=== PATIENT | female | born 1995 | race Caucasian/White ===

== ENCOUNTER 2018-01-18 22:16 | Emergency (ER) | payer OTHER ==
[~2018-01-18 22:16] MED LIST: BACTRIM DS TAB1 EACH PO; KEFLEX500 M1 PO; PREDNISONE10 MG PO
--- NOTE | 2018-01-19 00:20 | ED ANIMAL BITE/WOUND CHECK ---
History of Present Illness General Chief Complaint: Skin Rash/ Abcess Stated Complaint: ABSCESS FOLLOW-UP Source: patient Exam Limitations: no limitations Vital Signs & Intake/Output Vital Signs & Intake/Output Vital Signs Date Time Temp Pulse Resp B/P B/P Pulse O2 O2 Flow FiO2 Mean Ox Delivery Rate 01/19 0029 98.2 98 18 112/68 100 Room Air 01/19 0028 100 Room Air 01/18 2238 114/69 01/18 2237 98.5 101 16 97 Room Air ED Intake and Output 01/19 0000 01/18 1200 Intake Total Output Total Balance Patient 130 lb Weight Weight Reported by Patient Measurement Method Allergies Coded Allergies: amoxicillin (Intermediate, HIVES 10/13/15) soy (Mild, HIVES 10/13/15) Reconcile Medications Cephalexin (Keflex) 500 MG CAPSULE 1 CAP PO TID abscess Prednisone 10 MG TAB 0 TAB PO DAILY CONTACT DERMATITIS TAKE 4 PILLS A DAY FOR 3 DAYS AND TAKE 3 PILLS A DAY FOR 3 DAYS AND TAKE 2 PILLS A DAY FOR 3 DAYS AND TAKE ONE PILL A DAY FOR 3 DAYS Sulfamethoxazole/Trimethoprim (Bactrim Ds Tablet) 800 MG-160 MG TABLET 1 TAB PO BID abscess/cellulitis Triage Note: PT TO ED FOR I&D OF ABSCESS TO GROIN AREA. SEEN FOR SAME ON WEDNESDAY AND STARTED ON PO ABTS. HAS BEEN DOING WARM SOAKS. STATES WAS TOLD TO RETURN TODAY FOR RECHECK AND DRAINAGE. Triage Nurses Notes Reviewed? yes Onset: Abrupt Duration: day(s): (5), better Timing: single episode today Injury Environment: home Is Injury an Animal Bite? No : No Patient currently breastfeeds: No HPI: 22-year-old female no medical history presents for abscess recheck. Patient was seen here several days ago for an abscess/cellulitis. She was given antibiotics still do warm soaks. The abscess was not drained at that time. Patient states she's been taking her antibiotics as directed and applying warm soaks. She states that yesterday a large amount of drainage came out at the abscess area. She states that it is gotten much better but is still swollen. There is no redness no fever. (Feed Ron) Past History Travel History Traveled to [place] past 21 day No Medical History Any Pertinent Medical History? see below for history Neurological: NONE EENT: NONE Cardiovascular: NONE Respiratory: NONE Gastrointestinal: NONE Hepatic: NONE Renal: NONE Musculoskeletal: NONE Psychiatric: NONE Endocrine: NONE Surgical History Surgical History: non-contributory Psychosocial History What is your primary language Latvian Tobacco Use: Never used Family History Hx Contributory? No (Fede Ron) Review of Systems Review of Systems Constitutional: Reports: no symptoms. EENTM: Reports: no symptoms. Respiratory: Reports: no symptoms. Cardiovascular: Reports: no symptoms. GI: Reports: no symptoms. Genitourinary: Reports: no symptoms. Musculoskeletal: Reports: no symptoms. Skin: Reports: see HPI (abscess). Neurological/Psychological: Reports: no symptoms. Hematologic/Endocrine: Reports: no symptoms. Immunologic/Allergic: Reports: no symptoms. All Other Systems: Reviewed and Negative (Fede Ron) Physical Exam Physical Exam General Appearance: well developed/nourished, no apparent distress, alert, awake Head: atraumatic, normal appearance Eyes: Bilateral: normal appearance, EOMI. Ears, Nose, Throat: hearing grossly normal Neck: normal inspection, supple, full range of motion Respiratory: no respiratory distress Back: normal inspection, normal range of motion Extremities: left suprapubic area there is a 1.5 cm diameter area of induration without erythema or discharge no focal fluctuant areas. There is left inguinal lymphadenopathy. There is tenderness to palpation. No erythema no discharge Neurologic/Psych: no motor/sensory deficits, awake, alert, oriented x 3, normal gait Skin: intact, normal color, warm/dry Lymphatic: inguinal node tender (L) (Fede Ron) Progress Differential Diagnosis: abscess, cellulitis, joint infection Plan of Care: Patient is here for an abscess recheck. The area is still very indurated. She reported that a large amount of discharge came out yesterday. No signs of overlying cellulitis. She feels it is getting better. Advised to continue antibiotics with full course continue warm compresses follow-up in another 2 or 3 days. Discussed return precautions patient agrees the plan (Fede Ron) Departure Departure Disposition: HOME OR SELF CARE Condition: Stable Clinical Impression Primary Impression: Abscess re-check Referrals: Patient Has No Primary Care Dr (PCP/Family) Additional Instructions: Continue antibiotics as directed for the full course. Apply warm compresses for 15-20 minutes every few hours. Monitor the area closely if you notice spreading redness worsening swelling worsening pain fever or any other concerns return immediately. you should otherwise have a wound check in another 2 or 3 days. Departure Forms: Customer Survey General Discharge Information (Fede Ron) PA/HOG COOLER Co-Sign Statement Statement: ED Attending supervision documentation- [] I saw and evaluated the patient. I have also reviewed all the pertinent lab results and diagnostic results. I agree with the findings and the plan of care as documented in the PA's/HOG COOLER's documentation. [x] I have reviewed the ED Record and agree with the PA's/HOG COOLER's documentation. [] Additions or exceptions (if any) to the PAs/HOG COOLER's note and plan are summarized below: [] (Barrett MULTANI,Cesar Carlos) ED Attending Observation Initial Observation Note: I have seen and personally examined JOANIE HOLLINS on 01/19/18 at 0928. I agree with the current emergency department documentation. The disposition (admission or discharge) is uncertain at this time, she needs a period of observation for the following reason(s): The ED Nurse caring for this patient has been personally informed as to what the patient is being observed for. (Fede Ron)
[2018-01-19 00:29] VITALS: BP 112/68
== END 2018-01-19 00:30 ==
LOC: ERH 22:16
DX: Z09 Encounter for follow-up examination after completed treatment for conditions other than malignant neoplasm (principal)